=== PATIENT | female | born 1955 | race Caucasian/White ===

== ENCOUNTER 2021-05-29 20:29 | Emergency (ER) | payer OTHER ==
--- NOTE | 2021-05-29 21:09 | ER ---
Nurse's Notes [facility] Name: Marleni López Age: 66 yrs Sex: Female : 1955 Arrival Date: 05/29/2021 Time: 20:33 Bed Waiting Private MD: Pedrito Liao E Diagnosis: ED Course: 05/29 20:33 Patient arrived in ED. mr 20:33 Pedrito Liao MD is Private Physician. mr Administered Medications: No medications were administered Outcome: 21:08 Patient left the ED. ll1 Signatures: Tawana Rodas mr Linda Lizama, RN RN ll1
== END 2021-05-29 21:08 | disposition left against medical advice (07) ==
LOC: ER 20:29
DX: Z02.9 Encounter for administrative examinations, unspecified (principal)

== ENCOUNTER → 2023-08-15 | Emergency (ER) | payer OTHER ==
[~2023-08-15] MED LIST: MORPHINE 4 MG/ML SYR ONE; ONDANSETRON 4 MG/2 ML VIAL ONE
[2023-08-15 13:25] LABS: Absolute Basophils 0.1 K/uL (0-0.5); Absolute Eosinophils 0.1 K/uL (0-0.5); Absolute Lymphocytes (CBC) 3.2 K/uL (0.7-4.9); Absolute Monocytes 2.8 K/uL (0.1-1.3); Absolute Neutrophil 10.3 K/uL (1.8-8.0); Basophils % 0.3 % (0-1.3); Eosinophils % 0.4 % (0-4.4); Hematocrit 35.6 % (36.0-45.0); Hemoglobin 11.8 g/dL (12.0-15.0); Lymphocytes % 19.5 % (15.3-44.8); MCH 28.5 pg (27.0-35.0); MCV 86.2 fL (80-100); MPV 7.8 fL (7.6-11.3); Monocytes % 17.1 % (3.3-12.3); Neutrophils % 62.7 % (41.7-73.7); Nucleated RBC Absolute Count 0.1 (0-0); Nucleated Red Blood Cells % 0.3 % (0-0); Platelets 638 thou/uL (152-406); RBC Red Blood Cell Count 4.14 M/uL (3.86-4.86); Red Cell Distribution Width 15.2 % (12.1-15.2)
--- NOTE | 2023-08-15 13:46 | RAD REPORT ---
EXAM DESCRIPTION: CT - Pelvis Wo Cont - 08/15/2023 1:34 pm CLINICAL HISTORY: hip pain Fall, pain and swelling COMPARISON: <Comparisons> TECHNIQUE: All CT scans are performed using dose optimization technique as appropriate and may inclu de automated exposure control or mA/KV adjustment according to patient size. FINDINGS: Several mildly enlarged left and right inguinal lymph nodes seen, presumably reactive. No intrapelvic mass or hematoma. The bones are diffusely demineralized. There is significant degenerativ e change involving the lumbar spine. Hardware is in place proximal left femur. Severe left hip arthritic changes with subchondral cyst for mation. The hardware in the proximal left femur appears intact. Moderate degenerative changes are pre sent right femur. There is no evidence of acute fracture seen. IMPRESSION: Severe osteoarthritis left hip with hardware noted proximal left femur. No hardware comp lication seen. No fracture or dislocation evident.
[2023-08-15 15:02] LABS: Differential Total Cells Count 100; Lymphocytes 21 % (15-42); Monocytes 11 % (0-10); Segmented Neutrophils 68 % (40-80)
[2023-08-15 15:03] LABS: Blood Morphology Comment NOT SEEN (NOT SEEN); Platelet Estimate INCR; Smudge Cells PRESENT
[2023-08-15 15:19] LABS: Albumin 2.3 g/dL (3.4-5.0); Albumin/Globulin Ratio 0.5 (1.1-1.8); Anion Gap 3.8 mEq/L (5.0-15.0); Bilirubin Total 0.3 mg/dL (0.2-1.0); Globulin 5.1 g/dL (2.3-3.5); Potassium 2.8 mEq/L (3.5-5.1); Protein, Total 7.4 g/dL (6.4-8.2)
--- NOTE | 2023-08-15 15:22 | EDPHYS ---
Physician Documentation [facility] Name: Marleni López Age: 68 yrs Sex: Female : 1955 Arrival Date: 08/15/2023 Time: 11:35 Bed 19 Private MD: ED Physician Micah Resendiz HPI: 08/14 20:20 This 68 yrs old Female presents to ER via EMS with complaints of Hip Pain. rt 20:20 Patient with prior surgery in the left hip presents to the ED with worsening pain to rt the left hip since April. Patient fell at that time but is not in seen anybody. Reports that the pain is worsened today but denies other discrete injury. Denies other acute complaints this time, symptoms are moderate severity, no other aggravating or elevating factors.. Historical: - Allergies: 12:29 No Known Allergies; tl4 - Home Meds: 12:29 atorvastatin oral [Active]; tl4 - PMHx: 12:29 Hip fracture; Hypercholesterolemia; tl4 - PSHx: 12:29 Appendectomy; tl4 - Immunization history:: Adult Immunizations unknown. - Social history:: Smoking status: Patient reports the use of cigarette tobacco products, smokes one-half pack cigarettes per day, Patient/guardian denies using alcohol, street drugs. - Family history:: not pertinent. ROS: 20:20 Constitutional: Negative for fever, chills, and weight loss, Eyes: Negative for injury, rt pain, redness, and discharge, Cardiovascular: Negative for chest pain, palpitations, and edema, Respiratory: Negative for shortness of breath, cough, wheezing, and pleuritic chest pain, Abdomen/GI: Negative for abdominal pain, nausea, vomiting, diarrhea, and constipation, Skin: Negative for injury, rash, and discoloration, Neuro: Negative for headache, weakness, numbness, tingling, and seizure, 20:20 MS/extremity: Positive for pain, Negative for contusion, Exam: 20:20 Constitutional: This is a well developed, well nourished patient who is awake, alert, rt and in no acute distress. Head/Face: Normocephalic, atraumatic. Chest/axilla: Normal chest wall appearance and motion. Nontender with no deformity. No lesions are appreciated. Cardiovascular: Regular rate and rhythm with a normal S1 and S2. No gallops, murmurs, or rubs. Normal PMI, no JVD. No pulse deficits. Respiratory: Lungs have equal breath sounds bilaterally, clear to auscultation and percussion. No rales, rhonchi or wheezes noted. No increased work of breathing, no retractions or nasal flaring. Abdomen/GI: Soft, non-tender, with normal bowel sounds. No distension or tympany. No guarding or rebound. No evidence of tenderness throughout. Skin: Warm, dry with normal turgor. Normal color with no rashes, no lesions, and no evidence of cellulitis. Neuro: Awake and alert, GCS 15, oriented to person, place, time, and situation. Cranial nerves II-XII grossly intact. Motor strength 5/5 in all extremities. Sensory grossly intact. Cerebellar exam normal. Normal gait. 20:20 Musculoskeletal/extremity: Tenderness to left hip, pulses, motor, sensation intact, no overlying redness.. Vital Signs: 12:24 BP 183 / 103; Pulse 89; Resp 20; Temp 98.3(O); Pulse Ox 100% ; Weight 53.07 kg (M); tl4 Height 5 ft. 4 in. ; Pain 10/10; 12:24 Body Mass Index 20.08 (53.07 kg, 162.56 cm) tl4 12:24 Pain Scale: Adult tl4 MDM: 12:29 Patient medically screened. rt 20:20 Differential diagnosis: Fracture, arthritis, septic arthritis. Data reviewed: vital rt signs, nurses notes, lab test result(s), radiologic studies. Consideration of Admission/Observation Escalation of care including admission/observation considered. Pain controlled with 1 dose of pain medications. Patient is found to have leukocytosis, likely reactive. I see no overlying skin changes consistent with septic arthritis, there is no joint space effusion. Do not believe that arthrocentesis is indicated at this time.. Counseling: I had a detailed discussion with the patient and/or guardian regarding the historical points, exam findings, and any diagnostic results supporting the discharge/admit diagnosis, radiology results, the need for outpatient follow up. Response to treatment: the patient's symptoms have markedly improved after treatment. 08/14 12:36 Order name: CBC with Diff; Complete Time: 15:14 rt 08/14 12:36 Order name: CMP; Complete Time: 15:20 rt 03/14 13:29 Order name: Manual Differential; Complete Time: 15:14 EDMS 08/14 12:36 Order name: CT Pelvis wo Cont; Complete Time: 13:49 rt 08/14 13:31 Order name: Labs - recollect needed: green top; Complete Time: 14:58 bc6 08/14 15:21 Order name: Crutches; Complete Time: 16:40 rt Administered Medications: 13:28 Drug: morphine IVP or IV 4 mg IVP once over 4 mins Route: IVP; Infused Over: 4 mins; tl4 Site: right antecubital; 14:59 Follow up: Response: No adverse reaction; Pain is decreased tl4 13:28 Drug: Ondansetron IVP 4 mg IVP once; over 2 minutes Route: IVP; Infused Over: 2 mins; tl4 Site: right antecubital; 14:58 Follow up: Response: No adverse reaction tl4 Disposition Summary: 08/15/23 15:21 Discharge Ordered Notes: Location: Home rt Problem: new rt Symptoms: have improved rt Condition: Stable rt Diagnosis - Osteoarthritis of left hip rt Followup: rt - With: Stephen Benavides MD - When: 2 - 3 days - Reason: Discharge Instructions: - Discharge Summary Sheet rt - Osteoarthritis rt - Hip Pain rt Forms: - Medication Reconciliation Form rt - Thank You Letter rt - Antibiotic Education rt - Prescription Opioid Use rt - Patient Portal Instructions rt - Leadership Thank You Letter rt Prescriptions: - acetaminophen-codeine 300-30 mg Oral tablet - take 1 tablet ORAL route every 6 hours; 15 tablet; Refills: 0, Product rt Selection Permitted Signatures: Dispatcher [employer] Micah Mei MD MD rt Daniella Garibay 6 Demetris Marin, RN RN tl4
--- NOTE | 2023-08-15 15:22 | ER ---
Nurse's Notes [facility] Name: Marleni López Age: 68 yrs Sex: Female : 1955 Arrival Date: 08/15/2023 Time: 11:35 Bed 19 Private MD: Diagnosis: Osteoarthritis of left hip Presentation: 08/14 12:16 Chief complaint: Patient states: Pt c/o left hip pain. Pt states she fell in April tl but never followed up. Pt states pain has been increasing since then. Pt states last night she walked up a flight of stairs and pain has been "unbearable" ever since. Pt has history of hip fx with surgical repair to her left hip in December 2022. 12:24 Coronavirus screen: At this time, the client does not indicate any symptoms associated tl4 with coronavirus-19. Ebola Screen: No symptoms or risks identified at this time. Initial Sepsis Screen: Does the patient meet any 2 criteria? No. Patient's initial sepsis screen is negative. Does the patient have a suspected source of infection? No. Patient's initial sepsis screen is negative. Risk Assessment: Do you want to hurt yourself or someone else? Patient reports no desire to harm self or others. Onset of symptoms was April 2023. 12:24 Method Of Arrival: EMS: [facility] tl4 12:24 Acuity: AMADOU 3 tl4 Triage Assessment: 12:27 General: Appears distressed, uncomfortable, Behavior is cooperative. Pain: Complains of tl4 pain in left hip. EENT: No deficits noted. No signs and/or symptoms were reported regarding the EENT system. Neuro: No deficits noted. Cardiovascular: No deficits noted. Denies chest pain, palpitations, syncope, Capillary refill < 3 seconds Patient's skin is warm and dry. Respiratory: No deficits noted. Airway is patent Respiratory effort is even, unlabored, Respiratory pattern is regular, symmetrical, Breath sounds are clear bilaterally. GI: No deficits noted. Patient currently denies diarrhea, nausea, vomiting. : No deficits noted. No signs and/or symptoms were reported regarding the genitourinary system. Derm: No deficits noted. No signs and/or symptoms reported regarding the dermatologic system. Musculoskeletal: Reports pain in left hip. Historical: - Allergies: 12:29 No Known Allergies; tl4 - Home Meds: 12:29 atorvastatin oral [Active]; tl4 - PMHx: 12:29 Hip fracture; Hypercholesterolemia; tl4 - PSHx: 12:29 Appendectomy; tl4 - Immunization history:: Adult Immunizations unknown. - Social history:: Smoking status: Patient reports the use of cigarette tobacco products, smokes one-half pack cigarettes per day, Patient/guardian denies using alcohol, street drugs. - Family history:: not pertinent. Screenin:31 [facility] ED Fall Risk Assessment (Adult) History of falling in the last 3 months, tl4 including since admission No falls in past 3 months (0 pts) Confusion or Disorientation No (0 pts) Intoxicated or Sedated No (0 pts) Impaired Gait Yes (1 pt) Mobility Assist Device Used Yes (1 pt) Altered Elimination No (0 pt) Score/Fall Risk Level 0 - 2 = Low Risk Oriented to surroundings, Maintained a safe environment, Educated pt \\T\\ family on fall prevention, incl call for assistance when getting out of bed, Assessed \\T\\ reinforced patient's understanding of fall precautions, Provided non-skid footwear, Hourly rounding (assess needs \\T\\ fall precautionary measures) done, Used ambulatory aids as needed (educated on \\T\\ assisted with), Used gait belt as appropriate. Abuse screen: Denies threats or abuse. Denies injuries from another. Nutritional screening: No deficits noted. Tuberculosis screening: No symptoms or risk factors identified. Vital Signs: 12:24 BP 183 / 103; Pulse 89; Resp 20; Temp 98.3(O); Pulse Ox 100% ; Weight 53.07 kg (M); tl4 Height 5 ft. 4 in. ; Pain 10/10; 12:24 Body Mass Index 20.08 (53.07 kg, 162.56 cm) tl4 12:24 Pain Scale: Adult tl4 ED Course: 12:07 Patient arrived in ED. ko1 12:16 Demetris Marin, OSCAR is Primary Nurse. tl4 12:27 Triage completed. tl4 12:27 Arm band placed on left wrist. tl4 12:29 Micah Resendiz MD is Attending Physician. rt 12:31 Maintain EMS IV. Dressing intact. Good blood return noted. Site clean \\T\\ dry. Gauge \\T\\ tl 4 site: 20g right forearm. 13:29 CMP Sent. tl4 13:29 CBC with Diff Sent. tl4 13:36 CT Pelvis wo Cont In Process Unspecified. EDMS 15:21 Stephen Benavides MD is Referral Physician. rt Administered Medications: 13:28 Drug: morphine IVP or IV 4 mg IVP once over 4 mins Route: IVP; Infused Over: 4 mins; tl4 Site: right antecubital; 14:59 Follow up: Response: No adverse reaction; Pain is decreased tl4 13:28 Drug: Ondansetron IVP 4 mg IVP once; over 2 minutes Route: IVP; Infused Over: 2 mins; tl4 Site: right antecubital; 14:58 Follow up: Response: No adverse reaction tl4 Medication: 12:31 VIS not applicable for this client. tl4 Outcome: 15:21 Discharge ordered by . rt 17:10 Patient left the ED. tl4 Signatures: Dispatcher [employer] EDMS Carmelina Aceves RN RN ko1 Micah Resendiz MD MD rt Demetris Marin RN RN tl4 Corrections: (The following items were deleted from the chart) 12:27 12:16 Chief complaint: Patient states: Pt states she fell in April but never tl4 followed up. Pt states left hip pain has been increasing since then. Pt states last night she walked up a flight of stairs and pain has been "unbearable" ever since. Pt has history of hip fx with surgical repair to her left hip in December 2022. tl4
[2023-08-15 18:21] VITALS: BP 183/103; TEMP 98.3; O2SAT 100
== END ==
LOC: ER 11:35
DX: M16.12 Unilateral primary osteoarthritis, left hip (principal); F17.210 Nicotine dependence, cigarettes, uncomplicated
CPT/HCPCS: 85025; 36415; 80053; 72192; 96375; 96374; 99284; J2405